=== PATIENT | male | born 1970 | race Caucasian/White ===

== ENCOUNTER 2018-11-08 03:44 | Day surgery (SDC) | payer BC ==
[2018-11-08] MEDS ORDERED: Sodium Chloride 0.9% 10 ML Syringe FLUSH PRN (04:06)
[2018-11-08] MEDS ORDERED: Sodium Chloride 0.9% 1,000 ML IV STA (04:06)
[2018-11-08] MEDS ORDERED: Ondansetron 4 MG/2 ML SDV IVPUSH ONE ×2 (04:06→08:25)
[2018-11-08] MEDS ORDERED: HYDROmorphone 1 MG/ML Syringe IVPUSH ONE ×3 (04:08→08:03)
--- NOTE | 2018-11-08 04:14 | EDM.PDOC ---
ED HPI GENERAL MEDICAL PROBLEM - General Chief Complaint: Abdominal Pain Stated Complaint: SEVERE ABDOMINAL PAIN RIGHT SIDE AND VOMMITTING Time Seen by Provider: 11/08/18 04:01 Source of Information: Reports: Patient History Limitations: Reports: No Limitations - History of Present Illness INITIAL COMMENTS - FREE TEXT/NARRATIVE: The patient presents with RUQ abdominal pain. The pain started last night at about 11pm when he was trying to go to bed. The pain radiates to his right upper back. He has nausea and vomiting. He has chills but no fever. He has no chest pain or shortness of breath. He has no history of heart disease. His dad had a heart attack. He does not smoke. He still has his gallbladder and appendix. He has no dysuria. He has no history of kidney stones. Onset: Gradual Duration: Day(s): (Last night at 11pm) Location: Reports: Abdomen Quality: Reports: Sharp Severity: Severe Improves with: Reports: None Worsens with: Reports: None Associated Symptoms: Reports: Fever/Chills, Nausea/Vomiting. Denies: Chest Pain , Cough, Headaches, Shortness of Breath Right Upper Abdomen Pain Score (Numeric/FACES): 10 - Related Data Allergies Allergy/AdvReac Type Severity Reaction Status Date / Time No Known Allergies Allergy Verified 03/29/15 08:12 ED ROS GENERAL - Review of Systems Review Of Systems: See Below Constitutional: Reports: Chills. Denies: Fever HEENT: Reports: No Symptoms Respiratory: Reports: No Symptoms Cardiovascular: Reports: No Symptoms Endocrine: Reports: No Symptoms GI/Abdominal: Reports: Abdominal Pain (RUQ), Nausea, Vomiting. Denies: Diarrhea : Reports: No Symptoms Musculoskeletal: Reports: No Symptoms ED EXAM, GI/ABD - Physical Exam Exam: See Below Exam Limited By: No Limitations General Appearance: Alert, No Apparent Distress Ears: Normal External Exam Nose: Normal Inspection Head: Atraumatic, Normocephalic Neck: Normal Inspection Respiratory/Chest: No Respiratory Distress, Lungs Clear, Normal Breath Sounds Cardiovascular: Regular Rate, Rhythm, No Edema, No Murmur GI/Abdominal Exam: Soft, No Organomegaly, No Mass, Tender (Mild to moderate tenderness to the RUQ) Back Exam: Other (Pain upon palpation to the right upper back) Extremities: Normal Inspection Neurological: Alert, Oriented, No Motor/Sensory Deficits Course - Vital Signs Last Recorded V/S: Last Vital Signs Temp 97.4 F 11/08/18 03:55 Pulse 67 11/08/18 03:55 Resp 18 11/08/18 03:55 BP 173/102 H 11/08/18 03:55 Pulse Ox 100 11/08/18 03:55 - Orders/Labs/Meds Orders: Active Orders 24 hr Category Date Time Status EKG Documentation Completion [RC] ASDIRECTED Care 11/08/18 04:09 Active Peripheral IV Care [RC] . DIRECTED Care 11/08/18 04:07 Active Lactated Ringers [Ringers, Lactated] 1,000 ml Med 11/08/18 06:15 Active IV ASDIRECTED Sodium Chloride 0.9% [Saline Flush] Med 11/08/18 04:06 Active 10 ml FLUSH ASDIRECTED PRN ED Antiemetic Medication Reflex [OM.PC] Stat Oth 11/08/18 04:07 Ordered Peripheral IV Insertion Adult [OM.PC] Stat Oth 11/08/18 04:06 Ordered EKG 12 Lead [EK] Stat Ther 11/08/18 04:08 Ordered Medication Orders Lactated Ringer's (Ringers, Lactated) 1,000 mls @ 150 mls/hr IV ASDIRECTED AGAPITO Last Admin: 11/08/18 06:15 Dose: 150 mls/hr Sodium Chloride (Saline Flush) 10 ml FLUSH ASDIRECTED PRN PRN Reason: Keep Vein Open Last Admin: 11/08/18 04:19 Dose: 10 ml Labs: Laboratory Tests 11/08/18 11/08/18 11/08/18 Range/Units 04:04 04:04 07:25 WBC 10.73 H (4.23-9.07) K/mm3 RBC 5.09 (4.63-6.08) M/mm3 Hgb 14.5 (13.7-17.5) gm/L Hct 42.2 (40.1-51.0) % MCV 82.9 (79.0-92.2) fl MCH 28.5 (25.7-32.2) pg MCHC 34.4 (32.2-35.5) g/dl RDW Std Deviation 38.8 (35.1-43.9) fL Plt Count 243 (163-337) K/mm3 MPV 9.6 (9.4-12.3) fl Neut % (Auto) 88.9 H (34.0-67.9) % Lymph % (Auto) 6.8 L (21.8-53.1) % [place] % (Auto) 3.7 L (5.3-12.2) % Eos % (Auto) 0.1 L (0.8-7.0) Baso % (Auto) 0.2 (0.1-1.2) % Neut # (Auto) 9.54 H (1.78-5.38) K/mm3 Lymph # (Auto) 0.73 L (1.32-3.57) K/mm3 [place] # (Auto) 0.40 (0.30-0.82) K/mm3 Eos # (Auto) 0.01 L (0.04-0.54) K/mm3 Baso # (Auto) 0.02 (0.01-0.08) K/mm3 Manual Slide Review Abnormal smear Sodium 141 (136-145) mEq/L Potassium 3.5 (3.5-5.1) mEq/L Chloride 101 (98-107) mEq/L Carbon Dioxide 30 (21-32) mEq/L Anion Gap 13.5 (5-15) BUN 10 (7-18) mg/dL Creatinine 1.1 (0.7-1.3) mg/dL Est Cr Clr Drug Dosing 96.52 mL/min Estimated GFR (MDRD) > 60 (>60) mL/min BUN/Creatinine Ratio 9.1 L (14-18) Glucose 137 H (74-106) mg/dL Calcium 9.5 (8.5-10.1) mg/dL Total Bilirubin 0.6 (0.2-1.0) mg/dL AST 30 (15-37) U/L ALT 79 H (16-63) U/L Alkaline Phosphatase 72 (46-116) U/L Troponin I 0.000 (0.00-0.056) ng/mL Total Protein 7.9 (6.4-8.2) g/dl Albumin 4.5 (3.4-5.0) g/dl Globulin 3.4 gm/dL Albumin/Globulin Ratio 1.3 (1-2) Lipase 159 (73-393) U/L Urine Color Yellow (Yellow) Urine Appearance Clear (Clear) Urine pH 8.5 H (5.0-8.0) Ur Specific [place] 1.020 (1.005-1.030) Urine Protein 1+ H (Negative) Urine Glucose (UA) Negative (Negative) Urine Ketones 1+ H (Negative) Urine Occult Blood Negative (Negative) Urine Nitrite Negative (Negative) Urine Bilirubin Negative (Negative) Urine Urobilinogen 0.2 (0.2-1.0) Ur Leukocyte Esterase Negative (Negative) Urine RBC Not seen (0-5) /hpf Urine WBC 0-5 (0-5) /hpf Ur Epithelial Cells Not seen (0-5) /hpf Urine Bacteria Not seen (FEW) /hpf Urine Mucus Not seen (FEW) /hpf Meds: Medications Generic Name Dose Route Start Last Admin Trade Name Freq PRN Reason Stop Dose Admin Lactated Ringer's 1,000 mls @ 150 mls/hr 11/08/18 06:15 11/08/18 06:15 Ringers, Lactated IV 150 mls/hr ASDIRECTED AGAPITO Administration Sodium Chloride 10 ml 11/08/18 04:06 11/08/18 04:19 Saline Flush FLUSH 10 ml ASDIRECTED PRN Administration Keep Vein Open Discontinued Medications Generic Name Dose Route Start Last Admin Trade Name Freq PRN Reason Stop Dose Admin Hydromorphone HCl 1 mg 11/08/18 04:08 11/08/18 04:16 Dilaudid IVPUSH 11/08/18 04:09 1 mg ONETIME ONE Administration Hydromorphone HCl 0.5 mg 11/08/18 06:08 11/08/18 06:17 Dilaudid IVPUSH 11/08/18 06:09 0.5 mg ONETIME ONE Administration Hydromorphone HCl 0.5 mg 11/08/18 08:03 Dilaudid IVPUSH 11/08/18 08:04 ONETIME ONE Sodium Chloride 1,000 mls @ 1,000 mls/hr 11/08/18 04:06 11/08/18 04:15 Normal Saline IV 11/08/18 05:05 1,000 mls/hr .BOLUS STA Administration Ondansetron HCl 4 mg 11/08/18 04:06 11/08/18 04:15 Zofran IVPUSH 11/08/18 04:07 4 mg ONETIME ONE Administration - Re-Assessments/Exams Free Text/Narrative Re-Assessment/Exam: 11/08/18 04:13 I ordered an IV NS 1L bolus, zofran 4mg IV, dilaudid 1mg IV, labs, UA, EKG and an US of his abdomen to look at his gallbladder. 11/08/18 06:11 His EKG shows a sinus bradycardia with no acute changes. His WBC was elevated at 10.73. His glucose is elevated at 137. His ALT was slightly elevated at 79. His troponin is normal. His lipase is normal. His US shows shadowing gallstones are present. Rn Peritoneal Dialysis felt that there was a positive sonographic Pimentel sign. Clinical correlation is advised for possible acute gallbladder disease. No evidence of wall thickening or pericholecystic fluid. He is having more pain so I ordered dilaudid 0.5mg IV. I feel he may need to have this out. I will call Dr Martinez our surgeon mechatronics technologist. I called Dr Martinez and she will come see him. 11/08/18 07:58 His UA shows no UTI. Dr Martinez is here to see the patient. 11/08/18 08:06 She will see when she can take him to the OR or admit him. Departure - Departure Time of Disposition: 08:10 Disposition: Admitted As Inpatient 67 Condition: Fair Clinical Impression: Biliary colic Cholelithiases Qualifiers: Cholelithiasis location: gallbladder Cholecystitis presence: without cholecystitis Biliary obstruction: without biliary obstruction Qualified Code(s) : K80.20 - Calculus of gallbladder without cholecystitis without obstruction - Discharge Information Referrals: PCP,None [Primary Care Provider] - Forms: ED Department Discharge - My Orders Last 24 Hours: My Active Orders 11/08/18 04:06 Sodium Chloride 0.9% [Saline Flush] 10 ml FLUSH ASDIRECTED PRN Peripheral IV Insertion Adult [OM.PC] Stat 11/08/18 04:07 Peripheral IV Care [RC] . DIRECTED ED Antiemetic Medication Reflex [OM.PC] Stat 11/08/18 04:08 EKG 12 Lead [EK] Stat 11/08/18 04:09 EKG Documentation Completion [RC] ASDIRECTED 11/08/18 06:15 Lactated Ringers [Ringers, Lactated] 1,000 ml IV ASDIRECTED - Assessment/Plan Last 24 Hours: My Active Orders 11/08/18 04:06 Sodium Chloride 0.9% [Saline Flush] 10 ml FLUSH ASDIRECTED PRN Peripheral IV Insertion Adult [OM.PC] Stat 11/08/18 04:07 Peripheral IV Care [RC] . DIRECTED ED Antiemetic Medication Reflex [OM.PC] Stat 11/08/18 04:08 EKG 12 Lead [EK] Stat 11/08/18 04:09 EKG Documentation Completion [RC] ASDIRECTED 11/08/18 06:15 Lactated Ringers [Ringers, Lactated] 1,000 ml IV ASDIRECTED
[2018-11-08] MEDS ORDERED: Lactated Ringers 1,000 ML IV SCH (06:15)
--- NOTE | 2018-11-08 07:57 | US ---
Limited abdominal ultrasound: Multiple real-time images of the upper right abdomen were obtained. Comparison: No prior abdominal ultrasound. Increased bowel gas within the abdomen causes some diminishment of details. Numerous gallstones are seen within the gallbladder. No biliary duct dilatation is appreciated. No gallbladder wall thickening is identified. Liver not well seen but shows no gross abnormality. Right kidney shows no hydronephrosis or mass and has a length 9.9 cm. Pancreas is poorly seen. Portal vein shows normal hepatopedal flow. Impression: 1. Less than optimal study due to bowel gas. 2. Numerous gallstones without gallbladder wall thickening or biliary duct dilatation. 3. Nonvisualized pancreas due to bowel gas and poorly seen liver. Diagnostic code #3 I agree with preliminary report from [facility], finalized on 11/08/18, 6:49 AM Central Time
--- NOTE | 2018-11-08 09:31 | PCM.PREANE ---
Preanesthetic Assessment - Procedure Proposed Procedure: lap choley - Anesthesia/Transfusion/Family Hx Anesthesia History: Prior Anesthesia Without Reaction Family History of Anesthesia Reaction: No Transfusion History: No Prior Transfusion(s) - Review of Systems General: No Symptoms Pulmonary: No Symptoms Cardiovascular: No Symptoms Gastrointestinal: Abdominal Pain, Nausea, Vomiting Neurological: No Symptoms Other: Reports: None - Physical Assessment NPO Status Date: 11/08/18 NPO Status Time: 03:00 O2 Sat by Pulse Oximetry: 100 Respiratory Rate: 18 Vital Signs: Last Vital Signs Temp 97.4 F 11/08/18 03:55 Pulse 67 11/08/18 03:55 Resp 18 11/08/18 03:55 BP 173/102 H 11/08/18 03:55 Pulse Ox 100 11/08/18 03:55 Height: 6 ft 2 in Weight: 92.986 kg ASA Class: 2E Mental Status: Alert & Oriented x3 Airway Class: Mallampati = 2 Dentition: Reports: Normal Dentition Thyro-Mental Finger Breadths: 3 Mouth Opening Finger Breadths: 3 ROM/Head Extension: Full Lungs: Clear to Auscultation, Normal Respiratory Effort Cardiovascular: Regular Rate, Regular Rhythm - Lab Values: Laboratory Last Values WBC 10.73 K/mm3 (4.23-9.07) H 11/08/18 04:04 RBC 5.09 M/mm3 (4.63-6.08) 11/08/18 04:04 Hgb 14.5 gm/L (13.7-17.5) 11/08/18 04:04 Hct 42.2 % (40.1-51.0) 11/08/18 04:04 MCV 82.9 fl (79.0-92.2) 11/08/18 04:04 MCH 28.5 pg (25.7-32.2) 11/08/18 04:04 MCHC 34.4 g/dl (32.2-35.5) 11/08/18 04:04 RDW Std Deviation 38.8 fL (35.1-43.9) 11/08/18 04:04 Plt Count 243 K/mm3 (163-337) 11/08/18 04:04 MPV 9.6 fl (9.4-12.3) 11/08/18 04:04 Neut % (Auto) 88.9 % (34.0-67.9) H 11/08/18 04:04 Lymph % (Auto) 6.8 % (21.8-53.1) L 11/08/18 04:04 [place] % (Auto) 3.7 % (5.3-12.2) L 11/08/18 04:04 Eos % (Auto) 0.1 (0.8-7.0) L 11/08/18 04:04 Baso % (Auto) 0.2 % (0.1-1.2) 11/08/18 04:04 Neut # (Auto) 9.54 K/mm3 (1.78-5.38) H 11/08/18 04:04 Lymph # (Auto) 0.73 K/mm3 (1.32-3.57) L 11/08/18 04:04 [place] # (Auto) 0.40 K/mm3 (0.30-0.82) 11/08/18 04:04 Eos # (Auto) 0.01 K/mm3 (0.04-0.54) L 11/08/18 04:04 Baso # (Auto) 0.02 K/mm3 (0.01-0.08) 11/08/18 04:04 Manual Slide Review Abnormal smear 11/08/18 04:04 Sodium 141 mEq/L (136-145) 11/08/18 04:04 Potassium 3.5 mEq/L (3.5-5.1) 11/08/18 04:04 Chloride 101 mEq/L (98-107) 11/08/18 04:04 Carbon Dioxide 30 mEq/L (21-32) 11/08/18 04:04 Anion Gap 13.5 (5-15) 11/08/18 04:04 BUN 10 mg/dL (7-18) 11/08/18 04:04 Creatinine 1.1 mg/dL (0.7-1.3) 11/08/18 04:04 Est Cr Clr Drug Dosing 96.52 mL/min 11/08/18 04:04 Estimated GFR (MDRD) > 60 mL/min (>60) 11/08/18 04:04 BUN/Creatinine Ratio 9.1 (14-18) L 11/08/18 04:04 Glucose 137 mg/dL (74-106) H 11/08/18 04:04 Calcium 9.5 mg/dL (8.5-10.1) 11/08/18 04:04 Total Bilirubin 0.6 mg/dL (0.2-1.0) 11/08/18 04:04 AST 30 U/L (15-37) 11/08/18 04:04 ALT 79 U/L (16-63) H 11/08/18 04:04 Alkaline Phosphatase 72 U/L (46-116) 11/08/18 04:04 Troponin I 0.000 ng/mL (0.00-0.056) 11/08/18 04:04 Total Protein 7.9 g/dl (6.4-8.2) 11/08/18 04:04 Albumin 4.5 g/dl (3.4-5.0) 11/08/18 04:04 Globulin 3.4 gm/dL 11/08/18 04:04 Albumin/Globulin Ratio 1.3 (1-2) 11/08/18 04:04 Lipase 159 U/L (73-393) 11/08/18 04:04 Urine Color Yellow (Yellow) 11/08/18 07:25 Urine Appearance Clear (Clear) 11/08/18 07:25 Urine pH 8.5 (5.0-8.0) H 11/08/18 07:[address] 1.020 (1.005-1.030) 11/08/18 07:25 Urine Protein 1+ (Negative) H 11/08/18 07:25 Urine Glucose (UA) Negative (Negative) 11/08/18 07:25 Urine Ketones 1+ (Negative) H 11/08/18 07:25 Urine Occult Blood Negative (Negative) 11/08/18 07:25 Urine Nitrite Negative (Negative) 11/08/18 07:25 Urine Bilirubin Negative (Negative) 11/08/18 07:25 Urine Urobilinogen 0.2 (0.2-1.0) 11/08/18 07:25 Ur Leukocyte Esterase Negative (Negative) 11/08/18 07:25 Urine RBC Not seen /hpf (0-5) 11/08/18 07:25 Urine WBC 0-5 /hpf (0-5) 11/08/18 07:25 Ur Epithelial Cells Not seen /hpf (0-5) 11/08/18 07:25 Urine Bacteria Not seen /hpf (FEW) 11/08/18 07:25 Urine Mucus Not seen /hpf (FEW) 11/08/18 07:25 - Allergies Allergies/Adverse Reactions: Allergies Allergy/AdvReac Type Severity Reaction Status Date / Time No Known Allergies Allergy Verified 03/29/15 08:12 - Blood Blood Available: No - Acknowledgements Anesthesia Type Planned: General Anesthesia Pt an Appropriate Candidate for the Planned Anesthesia: Yes Alternatives and Risks of Anesthesia Discussed w Pt/Guardian: Yes Pt/Guardian Understands and Agrees with Anesthesia Plan: Yes PreAnesthesia Questionnaire HEENT History: Reports: Other (See Below) (glasses) Cardiovascular History: Reports: Heart Murmur Respiratory History: Reports: None Gastrointestinal History: Reports: Cholelithiasis, GERD, Helicobacter Pylori (hx ) Musculoskeletal History: Reports: None Neurological History: Reports: None, Migraines (occasional) Psychiatric History: Reports: None Endocrine/Metabolic History: Reports: None Oncologic (Cancer) History: Reports: None - Past Surgical History HEENT Surgical History: Reports: Oral Surgery - History Comment History Comment: tumeric and melatonin and l-lysine herbal meds. vits but no rx meds - SUBSTANCE USE Smoking Status *Q: Never Smoker Tobacco Use Within Last Twelve Months: No Second Hand Smoke Exposure: No Days Per Week of Alcohol Use: 7 Number of Drinks Per Day: 2 (elíasi) Total Drinks Per Week: 14 Recreational Drug Use History: No - CURRENT (IN HOUSE) MEDS Current Meds: Current Medications Lactated Ringer's (Ringers, Lactated) 1,000 mls @ 150 mls/hr IV ASDIRECTED AGAPITO Last Admin: 11/08/18 06:15 Dose: 150 mls/hr Sodium Chloride (Saline Flush) 10 ml FLUSH ASDIRECTED PRN PRN Reason: Keep Vein Open Last Admin: 11/08/18 04:19 Dose: 10 ml Discontinued Medications Hydromorphone HCl (Dilaudid) 1 mg IVPUSH ONETIME ONE Stop: 11/08/18 04:09 Last Admin: 11/08/18 04:16 Dose: 1 mg Hydromorphone HCl (Dilaudid) 0.5 mg IVPUSH ONETIME ONE Stop: 11/08/18 06:09 Last Admin: 11/08/18 06:17 Dose: 0.5 mg Hydromorphone HCl (Dilaudid) 0.5 mg IVPUSH ONETIME ONE Stop: 11/08/18 08:04 Last Admin: 11/08/18 08:17 Dose: 0.5 mg Sodium Chloride (Normal Saline) 1,000 mls @ 1,000 mls/hr IV .BOLUS STA Stop: 11/08/18 05:05 Last Admin: 11/08/18 04:15 Dose: 1,000 mls/hr Ondansetron HCl (Zofran) 4 mg IVPUSH ONETIME ONE Stop: 11/08/18 04:07 Last Admin: 11/08/18 04:15 Dose: 4 mg Ondansetron HCl (Zofran) 4 mg IVPUSH ONETIME ONE Stop: 11/08/18 08:26 Last Admin: 11/08/18 08:30 Dose: 4 mg
[2018-11-08] MEDS ORDERED: Metoclopramide 10 MG/2 ML SDV IVPUSH ONE (09:45)
[2018-11-08] MEDS ORDERED: fentaNYL 100 MCG/2 ML SDV IVPUSH ONE (09:47)
[2018-11-08] MEDS ORDERED: ceFAZolin 1 GM in Premix Bag 1 BAG IV ONE (11:08)
[2018-11-08] MEDS ORDERED: Ondansetron 4 MG/2 ML SDV ONE (11:34)
[2018-11-08] MEDS ORDERED: fentaNYL 250 MCG/5 ML SDV ONE (11:34)
[2018-11-08] MEDS ORDERED: Rocuronium 50 MG/5 ML Vial ONE (11:34)
[2018-11-08] MEDS ORDERED: Succinylcholine/Normal Saline 100 MG/5 ML Syringe ONE (11:34)
[2018-11-08] MEDS ORDERED: Lidocaine 1% 4 ML ONE (11:34)
[2018-11-08] MEDS ORDERED: Lactated Ringers 1,000 ML ONE (11:34)
[2018-11-08] MEDS ORDERED: Midazolam 1 MG/ML 2 ML SDV ONE (11:34)
[2018-11-08] MEDS ORDERED: Propofol 200 MG/20 ML SDV ONE ×2 (11:34→12:51)
[2018-11-08] MEDS ORDERED: Lidocaine 1% with EPINEPHrine 1:100,000 20 ML MDV ONE (11:35)
[2018-11-08] MEDS ORDERED: Bupivacaine 0.5%/EPINEPHrine 1:200,000 50 ML MDV ONE (11:35)
[2018-11-08] MEDS ORDERED: Lidocaine 1% 50 ML MDV ONE (11:36)
[2018-11-08] MEDS ORDERED: ceFAZolin 1 GM Vial ONE (11:47)
[2018-11-08] MEDS ORDERED: Dexamethasone 4 MG/ML 5 ML MDV ONE (12:09)
[2018-11-08] MEDS ORDERED: Haloperidol Lactate 5 MG/ML SDV IVPUSH ONE (12:13)
[2018-11-08] MEDS ORDERED: fentaNYL 100 MCG/2 ML SDV IVPUSH PRN (12:13)
[2018-11-08] MEDS ORDERED: HYDROmorphone 0.5 MG/0.5 ML Syringe IVPUSH PRN (12:13)
[2018-11-08] MEDS ORDERED: diphenhydrAMINE 50 MG/ML SDV IVPUSH PRN (12:13)
[2018-11-08] MEDS ORDERED: HYDROmorphone 0.5 MG/0.5 ML Syringe ONE (12:46)
--- NOTE | 2018-11-08 13:32 | PCM.POSTAN ---
POST ANESTHESIA ASSESSMENT - MENTAL STATUS Mental Status: Alert, Oriented - VITAL SIGNS Pulse Rate: 112 SaO2: 95 Resp Rate: 18 Blood Pressure: 142/87 Temperature: 36.5 C - RESPIRATORY Respiratory Status: Respiratory Rate WNL, Airway Patent, O2 Saturation Stable - CARDIOVASCULAR CV Status: Blood Pressure Stable, Elevated Pulse Rate - GASTROINTESTINAL GI Status: No Symptoms - PAIN Pain Score: 0 - POST OP HYDRATION Hydration Status: Adequate & Stable
--- NOTE | 2018-11-08 14:54 | PCM48HPAN ---
Post Anesthesia Note - EVALUATION WITHIN 48HRS OF ANESTHETIC Vital Signs in Normal Range: Yes Patient Participated in Evaluation: Yes Respiratory Function Stable: Yes Airway Patent: Yes Cardiovascular Function Stable: Yes Hydration Status Stable: Yes Pain Control Satisfactory: Yes Nausea and Vomiting Control Satisfactory: Yes Mental Status Recovered: Yes
--- NOTE | 2018-11-08 17:07 | CONS ---
CONSULTING PHYSICIAN: Sadie Martinez MD DATE OF CONSULTATION: 11/08/2018 Surgical Consultation Note CHIEF COMPLAINT: Right upper quadrant pain. HISTORY OF PRESENT ILLNESS: The patient is a very healthy 48-year-old male, who had a mild form of chili last evening for dinner. At about 11 o'clock, he started having this pain in his right upper quadrant. It escalated over the course of the evening, but he had multiple episodes of nausea and vomiting. Initially, it was just the chili, but then he just had the concern of dry heaves. This persisted and increased in intensity to the point where he was seen in the emergency department. He has never had any of these symptoms before in the past, albeit he does state that he has occasional episodes where he will be just a little bit sore in his right upper quadrant and then the symptoms would go away. He denies any fevers or chills or history of jaundice. No history of really dark urine or light-colored stools. The patient really does not have any documented history of food intolerances. The patient in the past 4 years ago, roughly in 2014, had an upper GI with a small bowel followthrough, which was essentially unremarkable. The patient does not have any history of hematuria or dysuria. The patient also had a history of peptic ulcer disease, for which he was treated for H pylori, which completely resolved the issues. The patient states that he occasionally takes [place], but nothing more than that. ALLERGIES: No known allergies. CURRENT MEDICATIONS: None. PAST SURGICAL HISTORY: He had an excision of a benign mole years ago. FAMILY HISTORY: He has 2 sisters and 2 brothers. Both sisters have had cholelithiasis and cholecystectomies. His mother and father are both alive, although his father has had significant coronary artery disease and has had strokes. SOCIAL HISTORY: Smoking negative. Alcohol negative. He works as a city supervisor. REVIEW OF SYSTEMS: NEUROLOGIC: No history of seizures. HEENT: No blurred or double vision. ENDOCRINE: No thyroid, diabetes, or hepatitis. LUNGS: No shortness of breath or cough. HEART: No chest pain or cardiac arrhythmia, although he states he has a small murmur. ABDOMEN: See HPI. : No history of kidney stones and no history of any hematuria. GI: No history of acholic stools. EXTREMITIES: No history of ankle swelling or edema, bleeding disorders, or clots. PHYSICAL EXAMINATION: GENERAL: This is an uncomfortable appearing male. HEENT: Sclerae are a little shannan. Pupils are equal. NECK: Without mass. LUNGS: Clear. HEART: Rhythm is regular and I really cannot hear a murmur. ABDOMEN: He is markedly tender with guarding in the right upper quadrant. I cannot palpate his gallbladder. There is a tiny little umbilical hernia. EXTREMITIES: Ankles are free of edema. LABORATORY WORK: Has been reviewed to include a CBC, which is WBC is mildly elevated at 10,000 and his H and H are 14 and 42 respectively. On his liver function tests, his ALT is elevated at 79, but his lipase is normal. Ultrasound is consistent with cholelithiasis. There is no marked gallbladder thickening and there is no dilatation of the common bile duct. IMPRESSION AND PLAN: Indeed, I think this patient is having symptomatic cholelithiasis. I had the opportunity to discuss the etiology to include drawing a picture and demonstrating how the stones will pass into the common bile duct. He certainly has been having difficulty with this now for almost 12 hours. He is not having much symptomatic relief. I explained to him that the cure for this is to do removal of the gallbladder. I clearly discussed the risks of an attempt at laparoscopic cholecystectomy to include, but not limited to bleeding, infection, heart attack, , and injury to other structures to include the common bile duct. In my diagram, I demonstrated how this is what we would not want to do. I also explained that during a cholecystectomy, we can push stones down into the common bile duct and this would lead to the additional procedures needed. I explained to him that currently with the labs that he has had, I do not suspect that there are no stones within the common bile duct, but I would like to repeat this before we make the final determination whether we should go to the operating room today or not. I offered a second opinion. I offered that he could go to a higher level of care and he has declined. I then went back afterwards about 45 minutes later to see if he had any improvement. My initial contact was about like 7 to 7:15 and he still was having the pain. Once we have the repeat liver function tests, we will determine which direction. If they remain normal, we will go to the operating room today. He is very pleased with this. He has been n.p.o. Status post history of Helicobacter pylori, which has been resolved. MMODAL /[id number]
--- NOTE | 2018-11-08 20:14 | OR ---
DATE OF OPERATION: 11/08/2018 SURGEON: Sadie Martinez MD PREOPERATIVE DIAGNOSIS: Acute cholecystitis. POSTOPERATIVE DIAGNOSIS: Acute cholecystitis. OPERATION PERFORMED: Laparoscopic cholecystectomy. ANESTHESIA: General with intubation. ESTIMATED BLOOD LOSS: Less than 15 mL. REPLACEMENT: Crystalloid. SECONDARY DIAGNOSIS: A small umbilical hernia. BRIEF HISTORY: This is a very pleasant male who arrived here with all the signs and symptoms of biliary colic. He had a mild elevation of his WBC, but otherwise labs were essentially unremarkable. I had the opportunity to discuss the risks and benefits of proceeding, he agreed to proceed. DESCRIPTION OF PROCEDURE: General anesthesia was obtained with intubation. Time-out was performed. The patient had SCDs on. The patient's abdomen was shaved in just a small area above the periumbilical area as well as in the subxiphoid area. At this time, then he was prepped and draped in the usual fashion. 1% lidocaine was instilled in the subcutaneous tissue in the infraumbilical area as well as in the subxiphoid area. Interesting enough, I had noted he had a very small umbilical hernia, and with relaxation, I was able to completely reduce the little nubbin of material. The defect was probably not more than 0.5 cm. I made a small transverse incision just directly over where I could feel the defect into the umbilicus area and I was able to appreciate the defect. I simply made a abdirizak in the obviously the umbilical hernia, a little bit of the sac that was there, and advanced a Veress needle. CO2 was insufflated with ease. I then went ahead and advanced a 5-mm port. The camera confirmed we had good positioning. A 12 mm was advanced into the intraperitoneal cavity after I made a transverse incision in the subxiphoid area, and I could appreciate the patient had a very inflamed gallbladder, it was more inflamed than I anticipated. Two 5s were advanced into the intraperitoneal cavity. The gallbladder was so tense. I went ahead and aspirated about 25 mL of bile from the gallbladder. This was not purulent and it was definitely bile. Once we did this, I was able to grasp the gallbladder. We did a tedious dissection in the infundibulum. This was very markedly distended and it was a chunk full of tones, but very carefully I dissected this and so I could get good identification of the cystic duct and the cystic artery. I paid particular attention to make sure that I was well away from the common duct area. I clipped 3 clips proximal and 1 distal on the cystic duct and was able to divide it successfully. The cystic artery was quite large, but I was able to continue to free all the inflamed surrounding tissues until I got a good purchase of the clips. It should be noted there was another small little structure, which I did put a clip on. Again, this was hugging the gallbladder the entire time. Once I had completely put the clips on in the appropriate spot, I went ahead and dissected free the gallbladder from the gallbladder fossa. Meticulous hemostasis was achieved using the electrocautery. I then placed the gallbladder in an endobag and brought it up through the upper 12 mm port site, but I had to enlarge this due to the number of stones. On inspection of the gallbladder, clearly he had many stones, some of them were at least 2.5 cm in diameter. Everything else looked okay. I then irrigated and removed any of the old blood, which was just a small amount. The clips were again assessed to be in good position. I then was able to remove the 5-mm ports under direct vision, no bleeding was noted; I removed the 12-mm port, no bleeding was noted; and then I removed the camera. I reapproximated the fascia of the 12-mm port in a continuous running fashion with PDS. This was done because again I had enlarged it, so it was larger than the 12. In the umbilicus area, I could appreciate the defect as I described for the umbilical hernia, and I was able to place a [id number] in this defect to close it down nicely. Subcuticular closure was done with Monocryl, and then benzoin and Steri-Strips applied. The patient tolerated the procedure well. We will determine his next phase of postoperative care whether we admit him or we can him go depending on how he does. KAMAR /[id number]
== END 2018-11-08 16:00 | disposition home or self-care (01) ==
LOC: JD.ED 03:44 → JD.SDS 11:26
PROVIDERS: ATTEND Surgery
DX: K80.10 Calculus of gallbladder with chronic cholecystitis without obstruction (principal); K42.9 Umbilical hernia without obstruction or gangrene; K21.9 Gastro-esophageal reflux disease without esophagitis
CPT/HCPCS: 00790; 36415; 76705; 76705-26; 80053; 81001; 82247; 82248; 83690; 84450; 84460; 84484; 85025; 93005; 96361; 96374; 96375; 96376; 99284; 99285-25; J0330; J0690; J1100; J1170; J2001; J2250; J2405; J2704; J2765; J3010; J3490; J7040; J7120